=== PATIENT | female | born 1990 | race Hispanic/Latino ===

== ENCOUNTER 2020-08-10 14:28 | Outpatient (CLI) | payer OTHER ==
--- NOTE | 2020-08-10 15:14 | ULT ---
Complete obstetrical ultrasound INDICATION: Evaluate cervical length and anatomy. TECHNIQUE: Grayscale, M-mode Doppler and Doppler images were obtained of the abdomen and pelvis to ev aluate the patient's known . COMPARISON: None FINDINGS: Number of gestations: Single. Presentation: Breech. Placental location: Posterior Previa: No evidence for previa. Cervical length: 3.7 cm without evidence of funneling. JOHN: 18.6 cm. heart rate: 153 bpm. Biparietal diameter: 5.01cm, 21 weeks and 2 days, Not calculated.. Head circumference: 18.70 cm, 21 weeks and 1 day, Not calculated. Abdominal circumference: 16.25 cm, 21 weeks and 3 days, Not calculated. Femoral length: 3.50cm, 21 weeks and 1 day, Not calculated. Estimated weight: 405 g +/- 59g 0 lbs. 14 oz. +/- 2 ounces, 55th percentile SURVEY: head: Normal appearing. Cerebellum: Normal appearing. Cisterna magna: Normal appearing. Lateral ventricles: Normal appearing. 4 chamber heart: Normal appearing.. Stomach: Normal appearing. Kidneys: Normal appearing. Cord insertion: Normal appearing. Bladder: Normal appearing. Spine: Normal appearing. Lips and nose: Normal appearing. Extremities: Normal appearing. Three-vessel CORD: Normal appearing. The average gestational age by ultrasound is 21 weeks and 2 dayswith estimated due date of December 102020. The estimated dates by clinical data is 21 weeks and 0 dayswith estimated due date of December 21. IMPRESSION: 1. Single live intrauterine gestation with size and dates as above. 2. survey appeared within normal limits.
== END 2020-08-10 14:29 | disposition home or self-care (01) ==
LOC: BICULT 14:28
PROVIDERS: ATTEND Family Medicine
DX: O09.892 Supervision of other high risk pregnancies, second trimester (principal); Z3A.21 21 weeks gestation of pregnancy
CPT/HCPCS: 76805

== ENCOUNTER 2020-12-11 07:57 | Outpatient (CLI) | payer OTHER ==
[2020-12-11 18:34] LABS: SARS-CoV-2 PCR by NAA Not Detected (NotDetected)
== END 2020-12-11 07:58 | disposition home or self-care (01) ==
LOC: LABBT 07:57
PROVIDERS: ATTEND Family Medicine
DX: Z20.822 Contact with and (suspected) exposure to COVID-19 (principal)
CPT/HCPCS: 87635; U0003; U0005

== ENCOUNTER 2020-12-14 09:59 | Inpatient (IN) | payer MEDICAID, OTHER, SELFPAY ==
[2020-12-14] MEDS ORDERED: Promethazine HCl 25 MG/ML VIAL IM PRN ×3 (10:44→15:13)
[2020-12-14] MEDS ORDERED: Lactated Ringer's 1,000 ML IV SCH (10:44)
[2020-12-14] MEDS ORDERED: hydrALAZINE 20 MG/ML VIAL SLOW IVP PRN ×2 (10:44→15:13)
[2020-12-14] MEDS ORDERED: Famotidine/PF 20 mg/2ml Vial SLOW IVP PRN (10:44)
[2020-12-14] MEDS ORDERED: CEFAZOLIN 2 GM in Premix Bag 1 BAG IVPB SCH (10:44)
[2020-12-14] MEDS ORDERED: Bicitra 30 ML UDCUP PO PRN (10:44)
[2020-12-14] MEDS ORDERED: Ondansetron PF 4 MG/2 ML Vial IVP PRN ×3 (10:44→15:13)
[2020-12-14 11:00] VITALS: BMI 33.3
[2020-12-14] MEDS ORDERED: Phenylephrine 10 MG/ML VIAL ONE (11:10)
[2020-12-14] MEDS ORDERED: Oxytocin 10 UNITS/ML VIAL ONE (11:10)
[2020-12-14] MEDS ORDERED: PHENYLEPHRINE-NS 100 MCG/ML 10 ML SYRINGE ONE (11:10)
[2020-12-14 11:12] LABS: Mean Corpuscular HGB CONC 33.2 g/dL (32.0-36.0); Mean Corpuscular Hemoglobin 27.2 pg (27.0-31.0); Mean Corpuscular Volume 81.7 fL (78.0-98.0); Mean Platelet Volume 10.1 fL (7.4-10.4); Platelet Count 178 thou/uL (130-400); RBC Distribution Width 15.1 % (11.5-14.5); Red Blood Cell (RBC) Count 4.05 mill/uL (4.20-5.40); White Blood Cell (WBC) Count 6.1 thou/uL (4.8-10.8)
[2020-12-14] MEDS ORDERED: Morphine PF 10 MG/10 ML VIAL ONE (11:18)
[2020-12-14 11:55] LABS: HBSAg Index 0.24 S/CO (0-0.99); Hep B Surf Ag Non-Reactive S/CO (NonReactive)
[2020-12-14 11:56] LABS: Syphilis Antibody Nonreactive (Nonreactive); Syphilis Antibody Index 0.02 S/CO (<1.00 Non-Reactive)
[2020-12-14] MEDS ORDERED: Midazolam HCl 2 mg/2 ml Vial ONE ×2 (12:50→13:15)
[2020-12-14] MEDS ORDERED: HYDROmorphone 2 MG/ML VIAL SLOW IVP PRN (13:06)
[2020-12-14] MEDS ORDERED: Promethazine HCl 25 MG SUPP PR PRN (13:06)
[2020-12-14] MEDS ORDERED: diphenhydrAMINE 50 MG/ML VIAL IVP PRN (13:06)
[2020-12-14] MEDS ORDERED: Ketorolac Tromethamine 30 MG/ML VIAL IVP PRN (13:06)
[2020-12-14] MEDS ORDERED: Ondansetron HCl/PF 4 MG/2 ML Vial IVP PRN (13:06)
[2020-12-14] MEDS ORDERED: Naloxone HCl 0.4 mg/ml Vial IVP PRN ×2 (13:06)
[2020-12-14] MEDS ORDERED: Naloxone HCl 0.4 mg/ml Vial IV PRN (13:06)
[2020-12-14] MEDS ORDERED: Meperidine HCl/PF 25 MG/ML VIAL SLOW IVP PRN (13:06)
[2020-12-14] MEDS ORDERED: L&D-Morphine 4 MG/ML VIAL SLOW IVP PRN (13:06)
[2020-12-14] MEDS ORDERED: Ketorolac Tromethamine 30 MG/ML VIAL IVP SCH (13:15)
[2020-12-14] MEDS ORDERED: Communication Order-Pharmacy FS SCH (13:15)
--- NOTE | 2020-12-14 13:31 | PDOC.OPDEL ---
OB Operative/Delivery Note Delivery Dr/Surgeon: Merritt, with resident surgeon Harvey Pre-Delivery Diagnosis: scheduled section Procedure/Post Delivery Dx: repeat low transverse CS Weeks gestation: 39 Anesthesia: spinal - Additional Findings/Plan Placenta delivered: manual removal Repaired Obstetrical Laceration: none findings: low transverse hysterotomy without extension Estimated blood loss: 810 Compilations/Other Findings: Date of Procedure: 12/14/20 Surgeon: Dr. Bang Resident surgeon: Dr. Gabriel, PGY-2 Procedure: Repeat low transverse caesarean section Preoperative Diagnosis: 1) Term intrauterine 2) Repeat LTCS X2 Postoperative Diagnosis: 1) Term intrauterine delivered rLTCS 2) Same Anesthesia: spinal Indications: 30 year old -> 3003 @ 39.0 wks presents for rLTCS Procedure in Detail: After risks, benefits, and alternatives were explained to the patient, she gave informed consent. Pre-operative antibiotics included ancef. The patient was taken to the operating room and spinal anesthesia was placed. She was placed in the supine position with a left tilt and prepped and draped in usual sterile fashion. A Pfannenstiel incision was made with a scalpel and carried down to the level of the fascia which was sharply nicked. The fascial cut was extended bilaterally with Bazan scissors. The inferior and superior edges of the cut fascial edges were elevated with Ayo clamps and the underlying rectus muscles were bluntly dissected free. There were adhesions between these bladder and lower uterine segment, a bladder flap was created with careful sharp dissection with the metzenbaum scissors,and bladder dissected free from uterus. The rectus muscles were incised laterally approx 3cm to create space for delivery. A low transverse score was made with the scalpel and the uterus was entered in the midline with the scalpel. Clear fluid was seen. The hysterotomy was extended manually. The was noted to be vertex and was easily delivered by fundal pressure. Mouth and nares were bulb suctioned. Cord clamped and cut and grossly normal was handed to waiting nurse. Cord blood was obtained. Placenta was manually extracted, found to be intact with 3 vessel cord and sent for path. The uterus was externalized and the endometrium was curetted with a dry lap. The hysterotomy was closed with a running locking 1.0-Monocryl in the usual fashion. The posterior serosa of the uterus was noted to have hemostatic scar tissue with webbing of the serosa. Seprafilm was placed over the anterior portion of the uterus and over the hysterotomy site. Following this hemostasis was again observed. Uterus was then internalized and the hysterotomy was again noted to be hemostatic. The peritoneum was closed with 3.0 vicryl in a running fashion. The rectus was evaluated for bleeders, which were attended to with bovie, and 0- Vicryl in interrupted horizontal mattress sutures was used to repair the incised rectus muscles bilaterally, following this hemostasis was noted. The fascia was closed with 2 running non-locking 0-PDS suture, tied in the center. The subcutaneous tissue was irrigated and there were bleeders were attended to with bovie. The subcutaneous layer was approximated with 3-0 vicryl in with interrupted sutures. The skin was approximated with nanette and a pressure dressing was placed. All counts were correct X3. The patient tolerated the procedure well and was taken to the recovery room in stable condition. QBL: 810 ml Complications: None Specimens: cord blood Findings: Grossly normal infant. Grossly normal placenta with 3 vessel cord. Drains: Varner to gravity draining clear urine Post delivery plan: recovery in LICU
[2020-12-14] MEDS ORDERED: NS w/ Oxytocin 30 units 500 ML ONE (15:08)
[2020-12-14] MEDS ORDERED: Ketorolac Tromethamine 30 MG/ML VIAL ONE (15:10)
[2020-12-14] MEDS ORDERED: diphenhydrAMINE 25 MG CAP PO PRN (15:13)
[2020-12-14] MEDS ORDERED: Bisacodyl 10 MG SUPP PR PRN (15:13)
[2020-12-14] MEDS ORDERED: Meperidine HCl/PF 25 MG/ML VIAL IM PRN (15:13)
[2020-12-14] MEDS ORDERED: NS / Oxytocin 40 units/1000ml 1,000 ML IV SCH (15:13)
[2020-12-14] MEDS: Ketorolac Tromethamine 30 MG/ML VIAL IVP SCH (16:04)
[2020-12-15] MEDS: Ketorolac Tromethamine 30 MG/ML VIAL IVP SCH ×2 (00:19→06:49)
[2020-12-15] MEDS: Docusate Calcium (SURFAK) 240 MG CAP PO SCH ×3 (00:31→21:17)
[2020-12-15] MEDS: Ferrous Sulfate 325 MG TAB PO SCH ×3 (00:31→21:17)
[2020-12-15 06:24] LABS: Hemoglobin 9.2 g/dL (12.0-16.0); Mean Corpuscular HGB CONC 32.9 g/dL (32.0-36.0); Mean Corpuscular Hemoglobin 27.1 pg (27.0-31.0); Mean Corpuscular Volume 82.6 fL (78.0-98.0); Mean Platelet Volume 9.6 fL (7.4-10.4); Platelet Count 139 thou/uL (130-400); Red Blood Cell (RBC) Count 3.38 mill/uL (4.20-5.40); White Blood Cell (WBC) Count 5.9 thou/uL (4.8-10.8)
[2020-12-15] MEDS: Prenatal Vitamin 1 TAB PO SCH (10:20)
[2020-12-15] MEDS: HYDROcodone/Acetaminophen 5/325 mg Tablet PO PRN ×3 (10:20→18:37)
[2020-12-15] MEDS: Ibuprofen 800 MG TAB PO SCH ×2 (13:50→21:17)
[2020-12-15] MEDS: Simethicone Chewable 80 MG TAB PO PRN ×2 (14:02→21:17)
[2020-12-15] MEDS ORDERED: Adacel (T-DAP) 0.5 ML SYRINGE IM ONE (15:13)
[2020-12-16] MEDS: HYDROcodone/Acetaminophen 5/325 mg Tablet PO PRN ×3 (03:20→19:26)
[2020-12-16] MEDS: Simethicone Chewable 80 MG TAB PO PRN (03:21)
[2020-12-16] MEDS: Ibuprofen 800 MG TAB PO SCH ×3 (06:02→20:24)
[2020-12-16] MEDS: Prenatal Vitamin 1 TAB PO SCH (08:55)
[2020-12-16] MEDS: Ferrous Sulfate 325 MG TAB PO SCH ×2 (08:55→20:24)
[2020-12-16] MEDS: Docusate Calcium (SURFAK) 240 MG CAP PO SCH ×2 (08:55→20:24)
[2020-12-17] MEDS: HYDROcodone/Acetaminophen 5/325 mg Tablet PO PRN (01:24)
[2020-12-17] MEDS: Ibuprofen 800 MG TAB PO SCH (04:43)
[2020-12-17 08:11] VITALS: BP 108/66; TEMP 97.9
== END 2020-12-17 11:00 | disposition home or self-care (01) | DRG 788 ==
LOC: L&D 09:59 → 3SW 15:42
PROVIDERS: ADMIT Family Medicine; ATTEND Family Medicine
PROC: 10D00Z1 Extraction of Products of Conception, Low, Open Approach (ICD-10-PCS; principal; 2020-12-14)
DX: O34.211 Maternal care for low transverse scar from previous cesarean delivery (principal); Z20.822 Contact with and (suspected) exposure to COVID-19; O99.62 Diseases of the digestive system complicating childbirth; K66.0 Peritoneal adhesions (postprocedural) (postinfection); Z3A.39 39 weeks gestation of pregnancy; Z37.0 Single live birth
CPT/HCPCS: 36415; 51702; 85027; 86780; 86850; 86900; 86901; 87340; J1200; J1885; J2250; J2270; J2370; J2405; J2590